=== PATIENT | male | born 1955 | race Caucasian/White ===

== ENCOUNTER 2016-12-10 08:24 | Outpatient (CLI) | payer OTHER ==
[2016-12-10 10:58] LABS: Hematocrit 44.7 % (42.0-52.0); Mean Platelet Volume 6.8 fL (7.4-10.4); Red Blood Cell (RBC) Count 4.78 mill/uL (4.70-6.10); White Blood Cell (WBC) Count 7.7 thou/uL (4.8-10.8)
[2016-12-10 11:06] LABS: PTT 33.9 SEC (22.9-36.1)
[2016-12-10 11:23] LABS: Anion Gap 12 mmol/L (10-20); BUN (Urea Nitrogen) 9 mg/dL (8.4-25.7); Calc. Creatinine Clearance 0 mL/min (70-130); Calcium 9.4 mg/dL (7.8-10.44); Carbon Dioxide 26 mmol/L (23-31); Chloride 105 mmol/L (98-107); Estimated GFR-MDRD Greater than 90
--- NOTE | 2016-12-10 11:28 | RAD ---
CHEST TWO VIEWS: History: Pre op. FINDINGS: Cardiac silhouette and pulmonary vasculature are unremarkable. Mediastinum is midline. Calcified gra nulomata are consistent with healed granulomatous disease. There is no confluent airspace consolidat ion, pneumothorax or pleural fluid evident. Ossification of the anterior longitudinal ligament on th e lateral view is consistent with diffuse idiopathic skeletal hyperostosis. IMPRESSION: No active cardiopulmonary abnormalities are demonstrated. POS: [facility]
[2016-12-10 11:35] LABS: Prothrombin Time 12.8 SEC (12.0-14.7)
[2016-12-10 11:39] LABS: Bilirubin Negative (Negative); Blood, Urine Negative (Negative); Glucose, Urine (Dipstick) Negative (Negative); Ketone, Urine Negative (Negative); Nitrite Negative (Negative); Protein, Urine (Dipstick) Negative (Neg-Trace); Urobilinogen 0.2 mg/dL (0.2-1.0)
[2016-12-10 11:46] LABS: Bacteria/HPF None Seen HPF (None Seen); Hyaline Casts/LPF 0-3 HYALINE CAST LPF (0-3 Hyaline); RBC/HPF 0-3 HPF (0-3); Squamous Epithelial None Seen HPF (0-3); WBC/HPF 0-3 HPF (0-3)
--- NOTE | 2016-12-12 09:04 | EKG ---
Test Reason : PREOP Blood Pressure : / mmHG Vent. Rate : 062 BPM Atrial Rate : 062 BPM P-R Int : 144 ms QRS Dur : 106 ms QT Int : 422 ms P-R-T Axes : 012 002 042 degrees QTc Int : 428 ms Normal sinus rhythm Indeterminate axis Inferior-posterior infarct , age undetermined Abnormal ECG When compared with ECG of 29-MAR-2013 10:50, Inferior-posterior infarct is now Present Confirmed by STEPHANI JONES ([id number]) on 12/12/2016 9:04:31 AM Referred By: YONAS Confirmed By:STEPHANI JONES
== END 2016-12-10 08:25 | disposition home or self-care (01) ==
LOC: LABBT 08:24
PROVIDERS: ATTEND Orthopaedic Surgery
DX: Z01.818 Encounter for other preprocedural examination (principal); M16.12 Unilateral primary osteoarthritis, left hip
CPT/HCPCS: 71020; 80048; 81001; 85027; 85610; 85730; 86850; 86900; 86901; 87081; 93005; 93010

== ENCOUNTER 2016-12-10 08:30 | Inpatient (IN) | payer OTHER ==
[2016-12-10 08:39] VITALS: BMI 30.3
[2016-12-17] MEDS ORDERED: Sodium Chloride 0.9% 100 ML ONE (06:50)
[2016-12-17] MEDS ORDERED: Acetaminophen 325 MG TAB PO PRN (06:55)
[2016-12-17] MEDS ORDERED: diphenhydrAMINE HCl 25 MG CAP PO PRN (06:55)
[2016-12-17] MEDS ORDERED: traMADol HCl 50 MG TAB PO PRN (06:55)
[2016-12-17] MEDS ORDERED: Ondansetron HCl/PF 4 MG/2 ML Vial IVP PRN (06:55)
[2016-12-17] MEDS ORDERED: Promethazine HCl 25 MG/ML VIAL IM PRN (06:55)
[2016-12-17] MEDS ORDERED: Fentanyl 100 MCG/2 ML VIAL SLOW IVP PRN ×2 (06:55)
[2016-12-17] MEDS ORDERED: Zolpidem Tartrate 5 MG TAB PO PRN (06:55)
[2016-12-17] MEDS ORDERED: HYDROcodone/Acetaminophen 10/325 mg Tablet PO PRN ×2 (06:55)
[2016-12-17] MEDS ORDERED: Sodium Chloride 0.9% 1,000 ML IV SCH (07:00)
[2016-12-17] MEDS ORDERED: Tranexamic Acid 1,000 MG in Sodium Chloride 0.9% 100 ML IVPB SCH (07:00)
[2016-12-17] MEDS ORDERED: Vancomycin HCl 1.5 GM in Sodium Chloride 0.9% 250 ML 300 ML IVPB SCH (07:00)
[2016-12-17] MEDS ORDERED: Meloxicam 15 MG TAB PO SCH (09:00)
[2016-12-17] MEDS ORDERED: Gabapentin 300 MG CAP PO SCH (09:00)
[2016-12-17] MEDS ORDERED: Aspirin 325 MG TAB PO SCH (09:00)
[2016-12-17] MEDS ORDERED: Multivitamin W/ Minerals 1 TAB PO SCH (09:00)
[2016-12-17] MEDS ORDERED: Ketorolac Tromethamine 30 MG/ML VIAL IVP SCH (14:00)
[2016-12-18] MEDS ORDERED: Ferrous Gluconate 324 MG TAB PO SCH (09:00)
[2016-12-18] MEDS ORDERED: Senokot S 8.6-50 MG TAB PO SCH (09:00)
== END 2016-12-17 09:15 | disposition home or self-care (01) | DRG 554 ==
LOC: SURG A 12-17 05:33 → UNDOADMIN 12-17 05:33 → UNDODISIN 12-17 09:15
PROVIDERS: ADMIT Orthopaedic Surgery; ATTEND Orthopaedic Surgery
DX: M16.12 Unilateral primary osteoarthritis, left hip (principal); Z53.8 Procedure and treatment not carried out for other reasons
CPT/HCPCS: J3370; J7050

== ENCOUNTER 2017-01-07 09:26 | Inpatient (IN) | payer OTHER ==
[2017-01-06 17:39] VITALS: BMI 30.9
[2017-01-07] MEDS ORDERED: CEFAZOLIN/Water 2 GM/20 ML SYRINGE ONE (10:17)
[2017-01-07] MEDS ORDERED: Tranexamic Acid 1,000 MG/100 ML BAG ONE ×2 (10:18→15:45)
[2017-01-07] MEDS ORDERED: Tranexamic Acid 1,000 MG in Sodium Chloride 0.9% 100 ML IVPB SCH ×3 (10:45→15:00)
[2017-01-07] MEDS ORDERED: Vancomycin HCl 1.5 GM in Sodium Chloride 0.9% 250 ML 300 ML IVPB SCH (11:00)
[2017-01-07] MEDS ORDERED: HYDROcodone/Acetaminophen 10/325 mg Tablet PO PRN ×4 (11:06→12:47)
[2017-01-07] MEDS ORDERED: Ondansetron HCl/PF 4 MG/2 ML Vial IVP PRN ×2 (11:15→12:47)
[2017-01-07] MEDS ORDERED: diphenhydrAMINE 25 MG CAP PO PRN ×2 (11:15→12:47)
[2017-01-07] MEDS ORDERED: diphenhydrAMINE 50 MG/ML VIAL IM PRN (11:15)
[2017-01-07] MEDS ORDERED: Promethazine HCl 25 MG/ML VIAL IM PRN ×2 (11:15→12:47)
[2017-01-07] MEDS ORDERED: Eucerin (Mineral Oil/Petrolatum,White) 30 gm Jar TOP PRN (11:15)
[2017-01-07] MEDS ORDERED: Naloxone HCl 0.4 mg/ml Vial IV PRN (11:15)
[2017-01-07] MEDS ORDERED: Zolpidem Tartrate 5 MG TAB PO PRN ×2 (11:15→12:47)
[2017-01-07] MEDS ORDERED: Bupivacaine 0.25% 10 ML VIAL EPIDURAL PRN (11:15)
[2017-01-07] MEDS ORDERED: Fentanyl/Bupivacaine 250 ML in Premix Bag 1 BAG EPIDURAL SCH (11:15)
[2017-01-07] MEDS ORDERED: diphenhydrAMINE 50 MG/ML VIAL IVP PRN (11:15)
[2017-01-07] MEDS ORDERED: traMADol HCl 50 MG TAB PO PRN ×2 (11:15)
[2017-01-07] MEDS ORDERED: Promethazine HCl 25 MG SUPP PR PRN (11:15)
[2017-01-07] MEDS ORDERED: Naloxone HCl 0.4 mg/ml Vial IVP PRN (11:15)
[2017-01-07] MEDS ORDERED: Fioricet 325/50/40 mg Tablet PO PRN ×2 (12:46→13:04)
[2017-01-07] MEDS ORDERED: Midazolam HCl 2 mg/2 ml Vial ONE (12:47)
[2017-01-07] MEDS ORDERED: Fentanyl 100 MCG/2 ML VIAL ONE ×2 (12:47→15:11)
[2017-01-07] MEDS ORDERED: Fentanyl 100 MCG/2 ML VIAL SLOW IVP PRN ×2 (12:47)
[2017-01-07] MEDS ORDERED: Ropivacaine 0.2% HCl/PF 20 ML ONE (12:47)
[2017-01-07] MEDS ORDERED: Acetaminophen 325 MG TAB PO PRN (12:47)
[2017-01-07] MEDS ORDERED: ePHEDrine/0.9% NaCl/PF SYRINGE 50 mg/10 ml ONE (13:10)
[2017-01-07] MEDS ORDERED: Ondansetron HCl/PF 4 MG/2 ML Vial ONE (13:10)
[2017-01-07] MEDS ORDERED: Dexamethasone 20 MG/5 ML VIAL ONE (13:10)
[2017-01-07] MEDS ORDERED: Lidocaine 2% PF 10 ML AMP (For Epidural Use) ONE (13:10)
[2017-01-07] MEDS ORDERED: Hydrocortisone Sod Succ/PF 100 mg/2 ml Vial ONE ×2 (13:10→14:25)
--- NOTE | 2017-01-07 14:55 | OP ---
PREOPERATIVE DIAGNOSES: Ankylosing spondylitis and left hip arthritis. POSTOPERATIVE DIAGNOSES: Ankylosing spondylitis and left hip arthritis PROCEDURE: Left total hip arthroplasty using Fermin Accolade 5.5 stem with a 36 mm -5 head, and a 56 mm Tritanium cup. SURGEON: Richard Neff M.D. VENUE ATTENDANT: Chauncey Santoyo PA-C. BLOOD LOSS: 200 mL. SPECIMEN: None. DRAINS: None. COMPLICATIONS: None. PROCEDURE IN DETAIL: After informed consent was obtained in the preoperative holding area, the noemi ent was taken to the operative suite where general anesthesia was induced. The patient was then pos itioned in the lateral decubitus position. The hip was then prepped and draped in usual sterile fas hion. The patient received preoperative antibiotics. Prior to incision, time-out was called and jaren alaniz members of the surgical team agreed upon site, surgeon, and patient. After this, a longitudinal i ncision was made directly over the trochanter, noted by palpation extending 2 fingerbreadths above a nd below the trochanter. The deeper subcutaneous layer was undermined with Bovie electrocautery. T he iliotibial band was encountered and incised sharply and the plane below this was developed bluntl y. A Charnley retractor was placed to hold this opened. The lateral aspect of the trochanter and t he abductor muscles were encountered and then reflected anteriorly off the trochanter using Bovie el ectrocautery. Once this was completed, the anterior capsule was then encountered and identified and copious capsulotomy was carried out, exposing the femoral neck and head. Dislocation maneuver was t hen performed and an in situ provisional neck cut was then made using the oscillating saw. Attentio n was then turned to acetabular preparation and sequential reaming was carried out up to the appropr iate diameter and a trial was then malleted into place with good firm resistance and no pullout. Th e permanent acetabular shell was then malleted squarely into place, as was the appropriate liner. O nce completed, the wound was copiously irrigated and attention was then turned to femoral preparatio n. Flexion and external rotation was performed of the exposed thigh and femoral elevators were then placed at the proximal aspect of the wound. Canal finder was used to establish the length of the ca nal and sequential reaming was carried out, followed by broaching. Once the appropriate stability w as established with the trial broaches with both flexion, extension and rotational stability, we did trial with neutral and 2 mm offset incremental necks. Once the appropriate size was decided upon, with good stability noted with flexion, extension, internal and external rotation and shuck being ne gative, we removed the femoral trial broach and malletted into place the permanent prosthesis with g ood firm fit, which was also stable to rotation. Again, the hip felt very stable to flexion, extens ion, internal and external rotation. Leg lengths appeared near anatomic clinically and we were quit e happy with prosthesis placement. Copious irrigation was then carried out through the entirety of the wound. Primary closure of the abductors was accomplished with interrupted #2 Vicryl figure-of-e ight stitches and the IT band was then closed with interrupted #2 Vicryl, oversewn with a #2 running barbed Quill stitch. Subcutaneous fascia was closed with running barbed Quill stitch and a subcuti cular Monocryl barbed Quill stitch was used for skin closure and augmented with skin cement. A ster ile dressing was applied. The procedure was terminated without any complication. All counts were co rrect. The patient was awakened in the operative suite and taken to the recovery room in stable con dition.
[2017-01-07] MEDS ORDERED: Fentanyl 250 MCG/5 ML VIAL ONE (15:11)
[2017-01-07] MEDS ORDERED: Fentanyl/Bupivacaine 250 ML EPIDURAL ONE (15:14)
--- NOTE | 2017-01-07 16:58 | RAD ---
TWO VIEWS OF THE LEFT HIP: 01/07/17 HISTORY: Evaluate hip following arthroplasty. FINDINGS: Metallic densities overlie the pubic symphysis suggesting radiation therapy beads within the prostat e gland. There is postoperative gas adjacent to the proximal right femur. There is a total left hip arthroplasty in place with no evidence for hardware failure. No acute fracture or dislocation is see n. IMPRESSION: Status post left total hip arthroplasty. POS: [facility]
[2017-01-07] MEDS ORDERED: CEFAZOLIN/Water 2 GM/20 ML SYRINGE SLOW IVP SCH (18:00)
--- NOTE | 2017-01-07 18:42 | PDOC.PN ---
- Subjective Encounter Start Date: 01/07/17 Encounter Start Time: 18:35 Subjective: Consult for med mgmt. S/P L MEKHI with hx of ankylosing spondylitis. -: No pain or SOB currently. No new compliants other than RLE weakness -: due to epidural. Reviewed all hx, labs, radiographs. - Objective MAR Reviewed: Yes Vital Signs & Weight: Vital Signs (12 hours) Temp Pulse Resp Pulse Ox 01/07/17 16:25 97.4 F L 80 16 97 Weight Weight 235 lb Additional Labs: Laboratory Tests 12/10/16 12/10/16 08:28 08:28 WBC 7.7 Hgb 14.9 Hct 44.7 Plt Count 252 Sodium 139 Potassium 4.0 Chloride 105 Carbon Dioxide 26 Anion Gap 12 BUN 9 Creatinine 0.78 Estimated GFR (MDRD) Greater than 90 Glucose 85 Calcium 9.4 Radiology Reviewed by me: Yes (L hip - prosthesis in place, no malpositioning) Phys Exam - Physical Examination Constitutional: NAD HEENT: PERRLA, oral pharynx no lesions Neck: no JVD, supple Respiratory: no wheezing, clear to auscultation bilateral Cardiovascular: RRR Gastrointestinal: soft, non-tender, no distention, positive bowel sounds L hip with edema and post-surgical changes, dressings in place Musculoskeletal: pulses present CN II-XII grossly intact Psychiatric: A&O x 3 Skin: normal turgor, cap refill <2 seconds Dx/Plan (1) Ankylosing spondylitis of multiple sites in spine Code(s): M45.0 - ANKYLOSING SPONDYLITIS OF MULTIPLE SITES IN SPINE Status: Chronic Comment: Supportive mgmt, XRT to R hip per pt report, pain control (2) Status post left hip replacement Code(s): Z96.642 - PRESENCE OF LEFT ARTIFICIAL HIP JOINT Status: Acute Comment: s/p L MEKHI, Joint U protocol, pain control, ASA 325mg BID (3) Chronic pain Code(s): G89.29 - OTHER CHRONIC PAIN Status: Chronic Qualifiers: Chronic pain type: chronic pain syndrome Qualified Code(s): G89.4 - Chronic pain syndrome Comment: Resume home pain meds, Gabapentin 1200mg TID - Plan PT/OT, manager social work, out of bed/ambulate, DVT proph w/SCDs Stable overall -: Continue ASA 325mg BID -: DVT ppx -: Continue Joint U protocol -: AM lab: CBC * Thank you for the consult, will continue to follow with primary service
[2017-01-07] MEDS: Ketorolac Tromethamine 30 MG/ML VIAL IVP SCH ×2 (20:05→22:58)
[2017-01-07] MEDS: Gabapentin 300 MG CAP PO SCH ×2 (20:06→21:30)
[2017-01-07] MEDS: Sodium Chloride 0.9% 1,000 ML IV SCH ×2 (20:06→23:02)
[2017-01-07] MEDS ORDERED: Aspirin 325 MG TAB PO SCH (21:00)
[2017-01-07] MEDS: Ferrous Gluconate 324 MG TAB PO SCH (21:32)
[2017-01-07] MEDS: Senokot S 8.6-50 MG TAB PO SCH (21:32)
[2017-01-07] MEDS: CEFAZOLIN/Water 2 GM/20 ML SYRINGE SLOW IVP SCH (22:59)
[2017-01-08] MEDS: Ketorolac Tromethamine 30 MG/ML VIAL IVP SCH ×3 (05:05→20:09)
[2017-01-08] MEDS: CEFAZOLIN/Water 2 GM/20 ML SYRINGE SLOW IVP SCH (05:06)
[2017-01-08 06:36] LABS: Hematocrit 38.8 % (42.0-52.0); Mean Platelet Volume 6.8 fL (7.4-10.4); Red Blood Cell (RBC) Count 4.14 mill/uL (4.70-6.10); White Blood Cell (WBC) Count 14.4 thou/uL (4.8-10.8)
[2017-01-08] MEDS: Ferrous Gluconate 324 MG TAB PO SCH ×2 (08:39→20:10)
[2017-01-08] MEDS: Senokot S 8.6-50 MG TAB PO SCH ×2 (08:39→19:38)
[2017-01-08] MEDS: Gabapentin 300 MG CAP PO SCH ×3 (08:39→20:09)
[2017-01-08] MEDS: Multivitamin W/ Minerals 1 TAB PO SCH (08:39)
[2017-01-08] MEDS ORDERED: Enoxaparin Sodium 30 MG/0.3 ML SYRINGE SC SCH (09:00)
[2017-01-08] MEDS: Sodium Chloride 0.9% 1,000 ML IV SCH ×3 (12:12→20:55)
--- NOTE | 2017-01-08 14:38 | PDOC.EVN ---
Event Note - Event Note Event Note: Chart reviewed. No new acute issues per RN. No overnight events
[2017-01-08] MEDS: traMADol HCl 50 MG TAB PO PRN (20:10)
[2017-01-09] MEDS: Ketorolac Tromethamine 30 MG/ML VIAL IVP SCH ×2 (00:49→06:17)
[2017-01-09] MEDS: traMADol HCl 50 MG TAB PO PRN (06:17)
[2017-01-09 06:41] LABS: Hematocrit 39.9 % (42.0-52.0); Mean Platelet Volume 6.8 fL (7.4-10.4); Red Blood Cell (RBC) Count 4.23 mill/uL (4.70-6.10); White Blood Cell (WBC) Count 11.8 thou/uL (4.8-10.8)
[2017-01-09] MEDS: Gabapentin 300 MG CAP PO SCH (08:01)
[2017-01-09] MEDS: Multivitamin W/ Minerals 1 TAB PO SCH (08:01)
[2017-01-09] MEDS: Ferrous Gluconate 324 MG TAB PO SCH (08:01)
[2017-01-09] MEDS: Senokot S 8.6-50 MG TAB PO SCH (08:01)
[2017-01-09 10:27] VITALS: TEMP 98.9
[2017-01-09 10:28] VITALS: BP 122/79
== END 2017-01-09 15:44 | disposition home or self-care (01) | DRG 470 ==
LOC: SURG A 09:26 → SJJU 16:19
PROVIDERS: ADMIT Orthopaedic Surgery; ATTEND Orthopaedic Surgery
PROC: 0SRB04A Replacement of Left Hip Joint with Ceramic on Polyethylene Synthetic Substitute, Uncemented, Open Approach (ICD-10-PCS; principal; 2017-01-07)
DX: M16.12 Unilateral primary osteoarthritis, left hip (principal); Z96.641 Presence of right artificial hip joint; G89.4 Chronic pain syndrome; M45.4 Ankylosing spondylitis of thoracic region
CPT/HCPCS: 36415; 77014; 77290; 77300; 77307; 77334; 77412; 77417; 85027; 86850; 86900; 86901; G8978-GP-CI; G8979-GP-CI; G8987-GO-CK; G8988-GO-CI; J1100; J1650; J1720; J1885; J2001; J2250; J2405; J2795; J3010; J3370; J7050

== ENCOUNTER 2019-04-02 08:50 | Outpatient (CLI) | payer OTHER ==
--- NOTE | 2019-04-02 11:37 | RAD ---
RIGHT RIB SERIES 2 VIEWS: DATE: 04/02/2019. PROVIDED CLINICAL HISTORY: Pain. FINDINGS: No evidence for a displaced right-sided rib fracture, pleural fluid, or pneumothorax. IMPRESSION: As above. POS: [facility]
== END 2019-04-02 08:51 | disposition home or self-care (01) ==
LOC: RAD-FRANK 08:50
PROVIDERS: ATTEND Nurse Practitioner Family
DX: R07.89 Other chest pain (principal); R07.81 Pleurodynia

== ENCOUNTER 2021-05-10 13:09 | Outpatient (CLI) | payer MEDICARE | END 2021-05-10 13:10 | disposition home or self-care (01) | LOC: RAD-FRANK 13:09 | PROVIDERS: ATTEND Nurse Practitioner Family | DX: R10.9 Unspecified abdominal pain (principal) | CPT/HCPCS: 74018 ==

== ENCOUNTER 2021-07-11 12:41 | Outpatient (CLI) | payer MEDICARE, MEDICAID | END 2021-07-11 12:42 | disposition home or self-care (01) | LOC: BICCT 12:41 | PROVIDERS: ATTEND Urology | DX: N20.0 Calculus of kidney (principal) | CPT/HCPCS: 74176 ==

== ENCOUNTER 2021-10-17 12:50 | Outpatient (CLI) | payer MEDICARE, MEDICAID | END 2021-10-17 12:51 | disposition home or self-care (01) | LOC: LABBT 12:50 | PROVIDERS: ATTEND Ophthalmology Retina Specialist | DX: H33.21 Serous retinal detachment, right eye (principal); H54.7 Unspecified visual loss; Z20.822 Contact with and (suspected) exposure to COVID-19 | CPT/HCPCS: 87811 ==

== ENCOUNTER 2021-10-18 08:18 | Day surgery (SDC) | payer MEDICARE, MEDICAID ==
[2021-10-17 12:38] VITALS: BMI 28.2
[~2021-10-18 08:18] MED LIST: Fluorouracil 100 MG, Enoxaparin Sodium 25 MG, EPINEPHrine 0.3 MG in Ophthalmic Irrigati... IRR SCH
[2021-10-18] MEDS ORDERED: Phenylephrine 2.5% Ophth Soln 5 ML BOT ONE (08:24)
[2021-10-18] MEDS ORDERED: Cyclopentolate 1% Opth Drop 2 ML BOT ONE (08:24)
[2021-10-18] MEDS ORDERED: Famotidine/PF 20 mg/2ml Vial ONE ×2 (08:45→10:18)
[2021-10-18] MEDS ORDERED: Midazolam HCl 2 mg/2 ml Vial ONE (10:17)
[2021-10-18] MEDS ORDERED: fentaNYL Citrate/PF 100 MCG/2 ML SYRINGE ONE (10:18)
[2021-10-18] MEDS ORDERED: Triamcinolone 40 MG/ML VIAL ONE (10:21)
[2021-10-18] MEDS ORDERED: PROPOFOL 200 MG/20 ML VIAL ONE (10:21)
[2021-10-18] MEDS ORDERED: Metoclopramide HCl 10 MG/2 ML VIAL ONE (10:21)
[2021-10-18] MEDS ORDERED: Lidocaine 4% PF 5 ML AMP ONE (10:21)
[2021-10-18] MEDS ORDERED: CEFAZOLIN 1 GM VIAL ONE (10:21)
[2021-10-18] MEDS ORDERED: Bupivacaine 0.75% 10 ML VIAL ONE (10:21)
[2021-10-18] MEDS ORDERED: Glycopyrrolate 0.2 MG/ML 5 ML SYRINGE ONE (10:21)
[2021-10-18] MEDS ORDERED: Lidocaine 1% PF 5 ML VIAL ONE ×2 (10:21)
[2021-10-18] MEDS ORDERED: Enoxaparin Sodium 30 MG/0.3 ML SYRINGE ONE (10:21)
[2021-10-18] MEDS ORDERED: Phenylephrine 10 MG/ML VIAL ONE (10:21)
[2021-10-18] MEDS ORDERED: Maxitrol 0.1% Opth Oint 3.5 GM TUBE ONE (10:21)
== END 2021-10-18 13:19 | disposition home or self-care (01) ==
LOC: SDC 08:18
PROVIDERS: ATTEND Ophthalmology Retina Specialist
PROC: 08PJ3JZ Removal of Synthetic Substitute from Right Lens, Percutaneous Approach (ICD-10-PCS; principal; 2021-10-18)
PROC: 08RJ3JZ Replacement of Right Lens with Synthetic Substitute, Percutaneous Approach (ICD-10-PCS; 2021-10-18)
PROC: 08T53ZZ Resection of Left Vitreous, Percutaneous Approach (ICD-10-PCS; 2021-10-18)
PROC: 08U10JZ Supplement of Left Eye with Synthetic Substitute, Open Approach (ICD-10-PCS; 2021-10-18)
DX: H33.021 Retinal detachment with multiple breaks, right eye (principal); T85.22XA Displacement of intraocular lens, initial encounter; Z79.899 Other long term (current) drug therapy
CPT/HCPCS: 66986; 67041; C1814; J0171; J0690; J1650; J2250; J2370; J2704; J2765; J3301; J3490; J9190; S0028

== ENCOUNTER 2022-02-21 10:00 | Day surgery (SDC) | payer MEDICARE, MEDICAID ==
[2022-02-20 09:09] VITALS: BMI 28.3
[~2022-02-21 10:00] MED LIST changes: +EPINEPHrine 0.3 MG in Ophthalmic Irrigation Solution 500 ML IVP SCH; -Fluorouracil 100 MG, Enoxaparin Sodium 25 MG, EPINEPHrine 0.3 MG in Ophthalmic Irrigati... IRR SCH
[2022-02-21] MEDS ORDERED: Cyclopentolate 1% Opth Drop 2 ML BOT ONE (10:19)
[2022-02-21] MEDS ORDERED: Phenylephrine 2.5% Ophth Soln 5 ML BOT ONE (10:19)
[2022-02-21] MEDS ORDERED: Lidocaine 4% PF 5 ML AMP ONE (12:43)
[2022-02-21] MEDS ORDERED: Maxitrol 0.1% Opth Oint 3.5 GM TUBE ONE (12:43)
[2022-02-21] MEDS ORDERED: Bupivacaine 0.75% 10 ML VIAL ONE (12:43)
[2022-02-21] MEDS ORDERED: ePHEDrine 50 MG/ML VIAL ONE (12:43)
[2022-02-21] MEDS ORDERED: Dexamethasone 20 MG/5 ML VIAL ONE (12:43)
[2022-02-21] MEDS ORDERED: Lidocaine 1% PF 5 ML VIAL ONE (12:43)
[2022-02-21] MEDS ORDERED: CEFAZOLIN 1 GM VIAL ONE (12:43)
[2022-02-21] MEDS ORDERED: Triamcinolone 40 MG/ML VIAL ONE (12:43)
[2022-02-21] MEDS ORDERED: PROPOFOL 200 MG/20 ML VIAL ONE (12:43)
[2022-02-21] MEDS ORDERED: Ondansetron PF 4 MG/2 ML Vial ONE (12:43)
== END 2022-02-21 15:35 | disposition home or self-care (01) ==
LOC: SDC 10:00
PROVIDERS: ATTEND Ophthalmology Retina Specialist
PROC: 08T43ZZ Resection of Right Vitreous, Percutaneous Approach (ICD-10-PCS; principal; 2022-02-21)
PROC: 08PJ3JZ Removal of Synthetic Substitute from Right Lens, Percutaneous Approach (ICD-10-PCS; 2022-02-21)
PROC: 08RJ3JZ Replacement of Right Lens with Synthetic Substitute, Percutaneous Approach (ICD-10-PCS; 2022-02-21)
DX: H27.121 Anterior dislocation of lens, right eye (principal); H43.311 Vitreous membranes and strands, right eye; Z79.899 Other long term (current) drug therapy
CPT/HCPCS: J0690; J1100; J2405; J2704; J3301; J3490

== ENCOUNTER 2022-07-02 08:51 | Outpatient (CLI) | payer MEDICARE, MEDICAID | END 2022-07-02 08:52 | disposition home or self-care (01) | LOC: RAD-FRANK 08:51 | PROVIDERS: ATTEND Nurse Practitioner Family | DX: R05.1 Acute cough (principal); R50.9 Fever, unspecified | CPT/HCPCS: 71046 ==